=== PATIENT | male | born 1960 | race Caucasian/White ===

== ENCOUNTER 2018-11-13 13:05 | Outpatient (REF) | payer SELFPAY ==
[2018-11-13 22:28] LABS: ALT 47 U/L (12-78); AST 22 U/L (15-37); Albumin 3.9 g/dL (3.4-5.0); Alkaline Phosphatase 66 U/L (46-116); Anion Gap 13.5 mmol/L (3-11); BUN 16 mg/dL (7-18); Bilirubin, Total 0.4 mg/dL (0.2-1.0); CO2 23.5 mmol/L (21.0-32.0); CREATININE 0.93 mg/dL (0.70-1.30); Calcium 9.6 mg/dL (8.5-10.1); Chloride 102 mmol/L (98-107); Cholesterol 245 mg/dL (50-200); Glucose 91 mg/dL (70-100); HDL Cholesterol 53 mg/dL (40-60); LDL CHOLESTEROL 164 mg/dL (<100); Potassium 4.3 mmol/L (3.5-5.1); Sodium 139 mmol/L (136-145); TSH 1.09 uIU/mL (0.358-3.74); Total Protein 7.4 g/dL (6.4-8.2); Triglyceride 106 mg/dL (30-150)
[2018-11-13 23:29] LABS: COMMENT (LAB VIEW ONLY) 244.37 mg/dL; Microalb ug/mg Crea 18.2 ug/mg Cr
== END 2018-11-13 13:25 ==
LOC: NCHCN 13:05
PROVIDERS: PCP Registered Nurse; Visit Provider Registered Nurse
DX: Z00.00 Encounter for general adult medical examination without abnormal findings (principal); R60.0 Localized edema; Z13.29 Encounter for screening for other suspected endocrine disorder; Z13.228 Encounter for screening for other metabolic disorders; Z13.220 Encounter for screening for lipoid disorders
CPT/HCPCS: 80053; 80061; 83721; 82043; 82570; 84443

== ENCOUNTER 2018-11-28 15:55 | Outpatient (REF) | payer MEDICARE, SELFPAY ==
[2018-11-28 22:16] LABS: Anion Gap 9.5 mmol/L (3-11); BUN 22 mg/dL (7-18); CO2 24.5 mmol/L (21.0-32.0); CREATININE 0.95 mg/dL (0.70-1.30); Calcium 9.8 mg/dL (8.5-10.1); Chloride 102 mmol/L (98-107); Glucose 90 mg/dL (70-100); Sodium 136 mmol/L (136-145)
[2018-11-28 22:44] LABS: COMMENT (LAB VIEW ONLY) 261.62 mg/dL; Microalb ug/mg Crea 18.8 ug/mg Cr
== END 2018-11-28 16:15 ==
LOC: NCHCN 15:55
PROVIDERS: PCP Registered Nurse; Visit Provider Registered Nurse
DX: I10 Essential (primary) hypertension (principal)
CPT/HCPCS: 80048; 82043; 82570

== ENCOUNTER 2023-01-17 19:09 | Outpatient (REF) | payer OTHER, SELFPAY ==
[2023-01-17 22:18] LABS: Albumin 4.1 g/dL (3.4-5.0); Alkaline Phosphatase 63 U/L (46-116); BUN 15 mg/dL (7-18); Bilirubin, Total 0.5 mg/dL (0.2-1.0); CO2 26.9 mmol/L (21.0-32.0); Calcium 9.9 mg/dL (8.5-10.1); Calculated LDL 174 mg/dL (<100); Chloride 104 mmol/L (98-107); Cholesterol 261 mg/dL (<200); Estimated GFR 84.57 (mL/min/1.73m2); Glucose 92 mg/dL (74-106); HDL Cholesterol 53 mg/dL (40-60); Potassium 4.1 mmol/L (3.5-5.1); Sodium 139 mmol/L (136-145); Total Protein 8.1 g/dL (6.4-8.2); Triglyceride 173 mg/dL (<150)
[2023-01-17 22:19] LABS: ALT 37 U/L (16-63); AST 23 U/L (15-37); Anion Gap 8.1 mmol/L (3-11)
[2023-01-18 18:53] LABS: PSA, Screening 0.8 ng/mL (<=4.5)
[2023-01-19 10:43] LABS: Hepatitis C Ab w Rflx HCV PCR Negative (Negative)
== END 2023-01-17 19:10 | disposition home or self-care (01) ==
LOC: NCHCN 19:09
PROVIDERS: PCP Registered Nurse; Visit Provider Family Medicine
DX: E78.5 Hyperlipidemia, unspecified (principal); Z72.89 Other problems related to lifestyle; F17.210 Nicotine dependence, cigarettes, uncomplicated; I10 Essential (primary) hypertension
CPT/HCPCS: 80053; 80061; 84153; 86803